=== PATIENT | female | born 2000 | race Caucasian/White ===

== ENCOUNTER 2022-03-15 02:35 | Inpatient (IN) | payer BC ==
[2022-03-15] VITALS (45 sets, daily range): BP systolic 113–164; BP diastolic 58–94
[~2022-03-15] VITALS: Ht 172.8 cm; Wt 87.9 kg
[2022-03-15] MEDS ORDERED: D5 LR IV SOLUTION 1,000 ML IV ONE (02:49)
[2022-03-15 03:21] LABS: BASOPHILS % (AUTO) 0 % (0-10); EOSINOPHILS % (AUTO) 0 % (0-10); HEMATOCRIT 37 % (35-52); HEMOGLOBIN 12.3 g/dL (11.5-16.0); LYMPHOCYTES # (AUTO) 0.9 10^3/uL (1.0-4.0); LYMPHOCYTES % (AUTO) 4 % (12-44); MEAN CORPUSCULAR HEMOGLOBIN 28 pg (25-34); MEAN CORPUSCULAR HGB CONC 33 g/dL (32-36); MEAN CORPUSCULAR VOLUME 85 fL (80-99); MEAN PLATELET VOLUME 10.9 fL (9.0-12.2); MONOCYTES # (AUTO) 0.3 10^3/uL (0.0-1.0); MONOCYTES % (AUTO) 2 % (0-12); NEUTROPHILS # (AUTO) 18.8 10^3/uL (1.8-7.8); NEUTROPHILS % (AUTO) 93 % (42-75); PLATELET COUNT 158 10^3/uL (130-400); WHITE BLOOD COUNT 20.2 10^3/uL (4.3-11.0)
[2022-03-15] MEDS ORDERED: BUTORPHANOL INJ 2 MG/ML (STADOL) VIAL ONE (03:23)
[2022-03-15] MEDS ORDERED: BUTORPHANOL INJ 2 MG/ML (STADOL) VIAL IV ONE (03:30)
[2022-03-15] MEDS ORDERED: fentaNYL 2 mcg/ml BUPIVA 0.125 100 ML ONE (03:30)
[2022-03-15 03:41] LABS: ANISOCYTOSIS SLIGHT; BAND NEUTROPHILS 2 %; LYMPHOCYTES % (MANUAL) 8 %; MONOCYTES % (MANUAL) 1 %; NEUTROPHILS % (MANUAL) 89 %
[2022-03-15] MEDS ORDERED: fentaNYL INJ 100 MCG/2 ML AMP ONE (04:26)
[2022-03-15] MEDS ORDERED: BUPIVACAINE 0.25% 30 ML (SENSORCAINE) VIAL ONE (04:26)
[2022-03-15] MEDS ORDERED: LIDOCAINE 1% INJ 10 ML VIAL ONE (04:54)
[2022-03-15] MEDS ORDERED: ONDANSETRON 4 MG/2 ML (SDV) Z0FRAN IV PRN (05:15)
[2022-03-15] MEDS ORDERED: NALOXONE 0.4 MG/ML 1 ML (NARCAN) VIAL IV PRN ×2 (05:15→09:00)
[2022-03-15] MEDS ORDERED: LACTATED RINGERS 1,000 ML IV SCH (05:15)
[2022-03-15] MEDS ORDERED: fentaNYL 2 mcg/ml BUPIVA 0.125 100 ML EPI SCH (05:15)
[2022-03-15] MEDS ORDERED: diphenhydrAMINE 50 MG/ML INJ (BENADRYL) IV PRN (05:15)
[2022-03-15] MEDS ORDERED: OXYTOCIN PRE-MIX DRIP 500 ML IV ONE (06:41)
--- NOTE | 2022-03-15 07:08 | History & Physical-OB ---
OB - Chief Complaint & HPI Date/Time Date of Admission: Date of Admission: Date seen by a Provider: Mar 15, 2022 Time Seen by a Provider: 06:55 Chief Complaint/History OB-Reason for Admission/Chief: Onset of Labor Hx : 1 Hx Para: 0 Expected Date of Delivery: Mar 18, 2022 Gestational Age in Weeks: 39 Gestational Age in Days: 4 Admission Nurse Assessment Rev: Yes History of Labs GBS negative Allergies and Home Medications Allergies Coded Allergies: No Known Drug Allergies (Unverified , 03/15/22) Patient Home Medication List Home Medication List Reviewed: Yes OB - History Hx of Present Care: Yes Ultrasounds: Normal mid trimester US Obstetrical Complications: None Medical Complications: None Patient Past Medical History no chronic medical problems OB - Admission Exam Physical Exam Vitals: Vital Signs 03/15/22 03/15/22 05:35 06:30 Temp 36.2 Pulse 124 Resp 16 B/P (MAP) 138/65 (89) Pulse Ox 95 O2 Delivery Room Air HEENT: Moist Membranes Heart: Rhythm Normal Lungs: Clear Abdomen: Gravid Extremities: Normal Cervical Dilatation: 6cm (on admission) Effacement: 75% Membranes: Intact Heart Rate: 140's Accelerations: Accelerations Present Decelerations: No Decelerations Short Term Variability: Present Crossband Layer Variability: Average (6-25) Contractions on Admission: < 5 Minutes Apart Intensity: Moderate Labs Laboratory Tests Test 03/15/22 03:10 Range/Units White Blood Count 20.2 H 4.3-11.0 10^3/uL Red Blood Count 4.35 3.80-5.11 10^6/uL Hemoglobin 12.3 11.5-16.0 g/dL Hematocrit 37 35-52 % Mean Corpuscular Volume 85 80-99 fL Mean Corpuscular Hemoglobin 28 25-34 pg Mean Corpuscular Hemoglobin Concent 33 32-36 g/dL Red Cell Distribution Width 14.7 H 10.0-14.5 % Platelet Count 158 130-400 10^3/uL Mean Platelet Volume 10.9 9.0-12.2 fL Immature Granulocyte % (Auto) 1 % Neutrophils (%) (Auto) 93 H 42-75 % Lymphocytes (%) (Auto) 4 L 12-44 % Monocytes (%) (Auto) 2 0-12 % Eosinophils (%) (Auto) 0 0-10 % Basophils (%) (Auto) 0 0-10 % Neutrophils # (Auto) 18.8 H 1.8-7.8 10^3/uL Lymphocytes # (Auto) 0.9 L 1.0-4.0 10^3/uL Monocytes # (Auto) 0.3 0.0-1.0 10^3/uL Eosinophils # (Auto) 0.0 0.0-0.3 10^3/uL Basophils # (Auto) 0.0 0.0-0.1 10^3/uL Immature Granulocyte # (Auto) 0.2 H 0.0-0.1 10^3/uL Neutrophils % (Manual) 89 % Lymphocytes % (Manual) 8 % Monocytes % (Manual) 1 % Band Neutrophils 2 % Anisocytosis SLIGHT OB - Assessment/Plan/Diagnosis Assessment Assessment: active labor Admission Dx 1. IUP at term 39w4d Admission Status: Inpatient Order (span 2 midnights) Reason for Inpatient Admission: L&D Plan Plan: Induction Other Plan Anticipated delivery She requests epidural JANIA CABRERA MD Mar 15, 2022 07:08
[2022-03-15] MEDS ORDERED: MEPIVACAINE (CARBOCAINE) 2% 50 ML VIAL ONE ×2 (07:14→07:23)
[2022-03-15] MEDS ORDERED: MEPIVACAINE (CARBOCAINE) 2% 50 ML VIAL INJ ONE (08:15)
--- NOTE | 2022-03-15 08:54 | OB Labor & Delivery Record ---
L&D History Date of Service Date of Service: Mar 15, 2022 History Expected Date of Delivery: Mar 18, 2022 Gestational Age in Weeks: 39 Hx : 1 Hx Para: 1 Complications Events: Routine care (though [place] provider) Operative Indications (Cesarea: N/A-Vaginal Delivery Intrapartal Events: None Other Complications GBS negative L&D Stage1 Stage One Onset of Labor - Date: Mar 14, 2022 Onset of Labor - Time: 22:00 Monitors and Tracing Monitor Mode: External Heart Rate: 140 Monitor Accelerations: Uniform Monitor Decelerations: None Station: -1 Short Term Variability: Present Presentation: Vertex Vital Signs VS - Last 72 Hours, by Label 03/15/22 03/15/22 03/15/22 03/15/22 02:20 02:30 02:35 02:50 Temp 36.4 36.4 Pulse 128 117 126 124 Resp 20 20 20 20 B/P (MAP) 133/73 (93) 164/81 (108) 151/80 (103) Pulse Ox 95 97 96 97 O2 Delivery Room Air Room Air Room Air Room Air 03/15/22 03/15/22 03/15/22 03/15/22 03:15 03:20 03:40 04:10 Pulse 135 112 108 112 Resp 20 20 20 20 B/P (MAP) 143/84 (103) 133/73 (93) 141/76 (97) 143/77 (99) Pulse Ox 97 97 96 98 O2 Delivery Room Air Room Air Room Air Room Air 03/15/22 03/15/22 03/15/22 03/15/22 04:35 04:40 04:45 04:50 Pulse 112 129 122 121 Resp 20 20 20 20 B/P (MAP) 141/87 (105) 144/79 (100) 136/75 (95) 133/68 (89) Pulse Ox 98 98 98 98 O2 Delivery Room Air Room Air Room Air Room Air 03/15/22 03/15/22 03/15/22 03/15/22 04:55 05:00 05:03 05:06 Pulse 144 122 126 135 Resp 20 20 20 20 B/P (MAP) 126/62 (83) 126/67 (86) 139/72 (94) 131/60 (83) Pulse Ox 96 99 99 99 O2 Delivery Room Air Room Air Room Air Room Air 03/15/22 03/15/22 03/15/22 03/15/22 05:09 05:12 05:15 05:18 Pulse 118 122 125 125 Resp 20 20 20 20 B/P (MAP) 125/59 (81) 127/60 (82) 136/80 (98) 153/70 (97) Pulse Ox 99 93 94 94 O2 Delivery Room Air Room Air Room Air Room Air 03/15/22 03/15/22 03/15/22 03/15/22 05:20 05:23 05:26 05:35 Temp 36.2 Pulse 125 121 125 120 Resp 16 16 16 16 B/P (MAP) 114/68 (83) 113/74 (87) 160/67 (98) 132/73 (92) Pulse Ox 97 97 98 97 O2 Delivery Room Air Room Air Room Air Room Air 03/15/22 03/15/22 03/15/22 03/15/22 05:45 06:00 06:15 06:30 Pulse 121 120 117 124 Resp 16 16 16 16 B/P (MAP) 140/75 (96) 132/63 (86) 151/65 (93) 138/65 (89) Pulse Ox 97 95 95 95 O2 Delivery Room Air Room Air Room Air Room Air 03/15/22 03/15/22 06:45 07:00 Pulse 118 117 Resp 16 16 B/P (MAP) 141/66 (91) 140/62 (88) Pulse Ox 96 96 O2 Delivery Room Air Room Air Signs of Distress by FHT Signs of Distress no Rupture of Membranes Spontaneous Ruture of Membrane: No Amniotic Membrane Rupture Time: 07:15 Amniotic Membrane Fluid Desc.: Meconium Stained Induction/Anesthesia Epidural Cath Placement - Time: 455 L&D Stage2 Stage Two Stage II Date: Mar 15, 2022 Stage II Time: 08:14 Monitors and Tracing Monitor Mode: Internal Heart Rate: 140 Monitor Accelerations: Uniform Monitor Decelerations: Variable Correction Variability: Average (6-10) Short Term Variability: Present Position: Left Occiput Anterior Presentation: Vertex Signs of Distress by FHT Signs of Distress no Cord Descript/Complications Cord Vessel Description: 3 Vessels Delivery Type Delivery Method: Spontaneous Vaginal Anterior Shoulder: Left Episiotomy/Perineal Laceration Laceraction(s)/Extensions: Yes Episiotomy Description: None, 1st degree Sutures Used: Vicryl Condition of Delivery 1 minute Comment: 8 5 minute Comment: 9 Condition of Condition of : Living Exam: No Observed Abnormalities Resuscitation Resuscitation: N/A - Spontaneous Resp L&D Stage3 Stage Three Stage III Date: Mar 15, 2022 Stage III Time: 08:22 Pictocin Pitocin ml/hr: 125 Placenta Delivery Placenta Delivery: Spontaneous Delivery Summary Summary Estimated blood loss (mL): 300 Condition of Delivery Examined: Cervix Examined Post Hemorrhage: No Intervention Required uterine massage JANIA CABRERA MD Mar 15, 2022 08:54
[2022-03-15] MEDS ORDERED: TETANUS,DIPTH,PERTUSS P/F (BOOSTRIX) 0.5 ML VIAL IM ONE ×2 (09:00→17:31)
[2022-03-15] MEDS ORDERED: OXYTOCIN PRE-MIX DRIP 500 ML IV SCH (09:00)
[2022-03-15] MEDS ORDERED: BENZOCAINE/MENTHOL (DERMOPLAST) 56 ML CAN TP PRN (09:00)
[2022-03-15] MEDS ORDERED: WITCH HAZEL(TUCKS) 40 EA JAR TOP PRN (09:00)
[2022-03-15] MEDS ORDERED: MEASLES,MUMPS,RUBELLA 1 EA INJ SQ ONE (09:00)
[2022-03-15] MEDS: DOCUSATE SODIUM 100 MG (COLACE) CAP PO SCH ×2 (09:12→21:22)
[2022-03-15] MEDS: IBUPROFEN 600 MG (MOTRIN) TAB PO SCH ×3 (09:12→21:22)
[2022-03-15] MEDS: ACETAMINOPHEN 500 MG TAB (TYLENOL) PO SCH ×3 (09:12→21:23)
[2022-03-15] MEDS ORDERED: CATHETER FLUSH 10 ML SYR IV SCH (14:00)
[2022-03-15] MEDS ORDERED: OMEP20TA33 PO (22:40)
[2022-03-15] MEDS ORDERED: PREN1COM PO (22:40)
[2022-03-16 01:15] VITALS: BP 131/69
[2022-03-16] MEDS: IBUPROFEN 600 MG (MOTRIN) TAB PO SCH ×2 (05:54→09:57)
[2022-03-16] MEDS: ACETAMINOPHEN 500 MG TAB (TYLENOL) PO SCH ×2 (05:55→09:57)
[2022-03-16 06:18] LABS: BASOPHILS # (AUTO) 0.1 10^3/uL (0.0-0.1); BASOPHILS % (AUTO) 0 % (0-10); EOSINOPHILS # (AUTO) 0.1 10^3/uL (0.0-0.3); EOSINOPHILS % (AUTO) 1 % (0-10); HEMATOCRIT 30 % (35-52); HEMOGLOBIN 9.5 g/dL (11.5-16.0); LYMPHOCYTES % (AUTO) 14 % (12-44); MEAN CORPUSCULAR HEMOGLOBIN 28 pg (25-34); MEAN CORPUSCULAR HGB CONC 32 g/dL (32-36); MEAN CORPUSCULAR VOLUME 87 fL (80-99); MEAN PLATELET VOLUME 10.8 fL (9.0-12.2); MONOCYTES # (AUTO) 0.8 10^3/uL (0.0-1.0); MONOCYTES % (AUTO) 5 % (0-12); NEUTROPHILS # (AUTO) 11.1 10^3/uL (1.8-7.8); NEUTROPHILS % (AUTO) 78 % (42-75); PLATELET COUNT 146 10^3/uL (130-400); WHITE BLOOD COUNT 14.1 10^3/uL (4.3-11.0)
--- NOTE | 2022-03-16 08:44 | Discharge Summary ---
Diagnosis/Chief Complaint Date of Admission Mar 15, 2022 at 02:44 Date of Discharge March 16, 2022 Discharge Date: Mar 16, 2022 Admission Diagnosis Admission Diagnosis 1 Intrauterine at term 39 weeks Discharge Diagnosis 1. Intrauterine at term 39 weeks 2. 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 [facility] and was noted to be dilated to 6 cm. Her GBS status was noted to be negative based upon records. She was admitted for anticipated delivery. She was at 39 weeks and 4 days gestation. Discharge Summary-OBS Procedures 1. Epidural per anesthesia 2. Spontaneous vaginal delivery 3. Repair of first degree perineal laceration Discharge Physical Examination Allergies: Coded Allergies: No Known Drug Allergies (Unverified , 03/15/22) Vitals & I&Os Vital Signs Date Time Temp Pulse Resp B/P (MAP) Pulse Ox O2 Delivery O2 Flow Rate FiO2 03/16/22 01:15 36.6 108 18 131/69 (89) 99 03/15/22 19:20 Room Air General Appearance: No Acute Distress HEENT: Atraumatic Respiratory: Clear to Auscultation Cardiovascular: Regular Rate Abdominal: Soft (with uterus firm) Neuro: Normal Speech Hospital Course Was the Problem List Reviewed?: Yes following admission patient underwent routine antepartum care orders. She underwent placement of scalp electrode with slight meconium staining fluid. She had already received epidural per anesthesia prior to this. Ultimately she contracted on her own delivering a term viable female in the morning of March 15, 2022. See labor and delivery note for full details. Following delivery patient underwent routine care orders. She had hemoglobin in the morning of March to 9.5 compared to admission of 12.3. She had tolerated regular diet. She did not have any reports of any chest pain or shortness of breath. She was felt ready for dismissal during the late morning of March 16, 2022. She will follow up with her provider within 6 weeks in [facility]. Pending Labs Laboratory Tests 03/16/22 05:52: White Blood Count 14.1, Red Blood Count 3.40, Hemoglobin 9.5, Hematocrit 30, Mean Corpuscular Volume 87, Mean Corpuscular Hemoglobin 28, Mean Corpuscular Hemoglobin Concent 32, Red Cell Distribution Width 15.3, Platelet Count 146, Mean Platelet Volume 10.8, Immature Granulocyte % (Auto) 1, Neutrophils (%) (Auto) 78, Lymphocytes (%) (Auto) 14, Monocytes (%) (Auto) 5, Eosinophils (%) (Auto) 1, Basophils (%) (Auto) 0, Neutrophils # (Auto) 11.1, Lymphocytes # (Auto) 2.0, Monocytes # (Auto) 0.8, Eosinophils # (Auto) 0.1, Basophils # (Auto) 0.1, Immature Granulocyte # (Auto) 0.1 Discharge Instructions to patient/family Please see electronic discharge instructions given to patient. Discharge Medications Reviewed and agree with Discharge Medication list on patient's Discharge Instr uction sheet JANIA CABRERA MD Mar 16, 2022 08:44
[2022-03-16] MEDS ORDERED: IBUP-844 PO (08:54)
--- NOTE | 2022-03-16 08:55 | Discharge Inst-Women's Service ---
Discharge Inst-Women's Serv Depart Medication/Instructions New, Converted or Re-Newed RX: Transmitted to Pharmacy ([facility] in [place]) Problems Reviewed?: Yes Consults/Follow Up Additional Follow Up: Yes (with provider in [facility] in 6 weeks.) Activity Driving Instructions: No Driving for 1 Week Nothing Inside Vagina: No [place] (for 6 weeks) Diet Discharge Diet: Regular Diet Return to The Hospital For: as below Symptoms to Report to : Bleeding Excessive, Pain Increased, Fever Over 101 Degrees F, Vaginal Discharge Foul For Any Problems or Questions: Contact Your Physician JANIA CABRERA MD Mar 16, 2022 08:55
[2022-03-16] MEDS: DOCUSATE SODIUM 100 MG (COLACE) CAP PO SCH (09:57)
[2022-03-16 10:05] VITALS: BP 129/81
[2022-03-16] MEDS ORDERED: MEASLES,MUMPS,RUBELLA 1 EA INJ ONE (10:20)
--- NOTE | 2022-03-16 12:37 | Anesthesia-Regional Post-Op ---
Regional Patient Condition Mental Status: Alert, Oriented x3 Circulation: Same as Pre-Op Headache: Absent Sensation: Full Recovery Motor Block: Absent Post Op Complications Complications None Follow Up Care/Instructions Patient Instructions None needed. Anesthesia/Patient Condition Patient is doing well, no complaints, stable vital signs, no apparent adverse anesthesia problems. No complications reported per nursing. DAKSHA PRADHAN CRNA Mar 16, 2022 12:37
== END 2022-03-16 13:55 | disposition home or self-care (01) | DRG 806 ==
LOC: LDRP 02:35 → WSo 02:35 → LDRP 02:44
PROVIDERS: ADMIT Family Medicine; ATTEND Family Medicine
PROC: 10E0XZZ Delivery of Products of Conception, External Approach (ICD-10-PCS; principal; 2022-03-15)
PROC: 0HQ9XZZ Repair Perineum Skin, External Approach (ICD-10-PCS; 2022-03-15)
PROC: 10H073Z Insertion of Monitoring Electrode into Products of Conception, Via Natural or Artificial Opening (ICD-10-PCS; 2022-03-15)
DX: O70.0 First degree perineal laceration during delivery (principal); D62 Acute posthemorrhagic anemia; Z37.0 Single live birth; Z3A.39 39 weeks gestation of pregnancy; Z23 Encounter for immunization; O77.0 Labor and delivery complicated by meconium in amniotic fluid; O90.81 Anemia of the puerperium
CPT/HCPCS: 36415; 85007; 85025; 85027; 86850; 86900; 86901; 90707; 90715; 99212